=== PATIENT | male | born 1990 | race African-American/Black ===

== ENCOUNTER 2020-06-08 13:44 | Emergency (ER) | payer OTHER, SELFPAY ==
--- NOTE | 2020-06-08 16:04 | RAD REPORT ---
EXAM DESCRIPTION: US - Scrotum Testicles - 06/08/2020 3:53 pm CLINICAL HISTORY: Testicular pain Pain and swelling COMPARISON: No comparisons FINDINGS: The right testicle 4.4 x 2.6 x 2.4 cm. No intratesticular masses or evidence of testicular torsion. The left testicle 3.8 x 2.1 x 2.9 cm. No intratesticular masses or evidence of testicular torsion. Both epididymides are normal in size and appearance. No pathologic fluid collections. IMPRESSION: Unremarkable study.
--- NOTE | 2020-06-08 16:17 | ER ---
Nurse's Notes [facility] Name: Maxim Diaz Age: 29 yrs Sex: Male : 1990 Arrival Date: 06/08/2020 Time: 13:50 Bed 15 [facility] MD: Diagnosis: Epididymitis Presentation: 06/08 13:57 Chief complaint: Patient states: Sudden "popping" pain to base of penis 2 days ago ll1 while having sex. Reports pain and numb areas of the penis since. No swelling reported. Unable to get an erection since. Coronavirus screen: Client denies travel out of the [place] in the last 14 days. At this time, the client does not indicate any symptoms associated with coronavirus-19. Ebola Screen: Patient denies travel to an Ebola-affected area in the 21 days before illness onset. Initial Sepsis Screen: Does the patient meet any 2 criteria? No. Patient's initial sepsis screen is negative. Risk Assessment: Do you want to hurt yourself or someone else? Patient reports no desire to harm self or others. Onset of symptoms was June 06, 2020. 13:57 Method Of Arrival: Ambulatory ll1 13:57 Acuity: HEATHER 3 ll1 14:41 Initial Sepsis Screen: Does the patient have a suspected source of infection? No. jd3 Patient's initial sepsis screen is negative. Historical: - Allergies: 13:59 No Known Allergies; ll1 - PSHx: 13:59 None; ll1 - Immunization history:: Adult Immunizations up to date. - Social history:: Smoking status: Patient denies any tobacco usage or history of. Patient/guardian denies using street drugs. Screenin:41 Abuse screen: Denies threats or abuse. Nutritional screening: No deficits noted. jd3 Tuberculosis screening: No symptoms or risk factors identified. Fall Risk Ambulatory Aid- None/Bed Rest/Nurse Assist (0 pts). Gait- Normal/Bed Rest/Wheelchair (0 pts) Mental Status- Oriented to own ability (0 pts). Total Phelps Fall Scale indicates No Risk (0-24 pts). Assessment: 14:39 General: Appears in no apparent distress. uncomfortable, Behavior is calm, cooperative, jd3 appropriate for age. Pain: Complains of pain in groin Quality of pain is described as shooting, tender. Neuro: Level of Consciousness is awake, alert, obeys commands, Oriented to person, place, time, situation. Cardiovascular: Denies chest pain, Capillary refill < 3 seconds Patient's skin is warm and dry. Respiratory: Airway is patent Respiratory effort is even, unlabored, Respiratory pattern is regular, symmetrical, Denies cough, shortness of breath. GI: No signs and/or symptoms were reported involving the gastrointestinal system. : Genitalia appear normal Reports scrotal pain started 2 days ago. EENT: No signs and/or symptoms were reported regarding the EENT system. Derm: Skin is intact, Skin is dry, Skin is normal, Skin temperature is warm. Musculoskeletal: Circulation, motion, and sensation intact. Range of motion: intact in all extremities. 15:33 Reassessment: Patient appears in no apparent distress at this time. No changes from jd3 previously documented assessment. Patient and/or family updated on plan of care and expected duration. Pain level reassessed. Patient is alert, oriented x 3, equal unlabored respirations, skin warm/dry/pink. ultrasound at bedside. 16:34 Reassessment: Patient appears in no apparent distress at this time. Patient and/or jd3 family updated on plan of care and expected duration. Pain level reassessed. Patient is alert, oriented x 3, equal unlabored respirations, skin warm/dry/pink. awaiting shot time before discharge. 16:48 Reassessment: Patient appears in no apparent distress at this time. Patient and/or jd3 family updated on plan of care and expected duration. Pain level reassessed. Patient is alert, oriented x 3, equal unlabored respirations, skin warm/dry/pink. Vital Signs: 13:57 BP 146 / 95; Pulse 79; Resp 17; Temp 98.7; Pulse Ox 100% ; Pain 8/10; ll1 15:34 BP 149 / 82; Pulse 76; Resp 17 S; Pulse Ox 100% on R/A; jd3 16:34 BP 134 / 89; Pulse 79; Resp 17 S; Pulse Ox 100% on R/A; jd3 ED Course: 13:50 Patient arrived in ED. bp1 13:53 Matt Melendez NP is PHCP. pm1 13:53 Darci Che MD is Attending Physician. pm1 13:59 Triage completed. ll1 13:59 Arm band placed on Patient placed in an exam room, on a stretcher. ll1 14:39 Eduardo Chiu, RN is Primary Nurse. jd3 14:42 Patient has correct armband on for positive identification. Placed in gown. Bed in low jd3 position. Call light in reach. Side rails up X 1. Pulse ox on. NIBP on. 16:35 No provider procedures requiring assistance completed. Patient did not have IV access jd3 during this emergency room visit. Administered Medications: 16:18 CANCELLED (Physician Discretion): Rocephin 1 grams IV at calculated rate once; Given pm1 slow IV push per pharmacy instructions 16:33 Drug: AZITHromycin 1 grams Route: PO; jd3 16:49 Follow up: Response: No adverse reaction jd3 16:33 Drug: TORadol 60 mg Route: IM; Site: right gluteus; jd3 16:49 Follow up: Response: No adverse reaction jd3 16:33 Drug: Rocephin (cefTRIAXone) 250 mg Route: IM; Site: left gluteus; jd3 16:49 Follow up: Response: No adverse reaction jd3 Outcome: 16:17 Discharge ordered by MD. pm1 16:48 Discharged to home ambulatory. jd3 16:48 Condition: stable 16:48 Discharge instructions given to patient, Instructed on discharge instructions, follow up and referral plans. Demonstrated understanding of instructions, follow-up care. 16:49 Patient left the ED. jd3 Signatures: Matt Melendez, JOSH PLATE [employer] MILL HAND pm1 Eduardo Chiu, LARRY RN jd3 Jeremy Alejandro RN RN ll1 Keara Bravo
--- NOTE | 2020-06-08 16:17 | EDPHYS ---
Physician Documentation [facility] Name: Maxim Diaz Age: 29 yrs Sex: Male : 1990 Arrival Date: 06/08/2020 Time: 13:50 Bed 15 Private MD: ED Physician Darci Che HPI: 06/08 14:28 This 29 yrs old Black Male presents to ER via Ambulatory with complaints of Genital pm1 pain. 14:28 The patient presents with scrotal pain, of the left side, in the area of the pm1 epidydimis, without swelling, without erythema. Onset: The symptoms/episode began/occurred 2 day(s) ago. Modifying factors: The symptoms are alleviated by nothing, the symptoms are aggravated by sexual intercourse. Associated signs and symptoms: Pertinent negatives: abdominal pain, diarrhea, dysuria, fever, hematuria, nausea, vomiting. Severity of symptoms: in the emergency department the symptoms are unchanged. The patient has not experienced similar symptoms in the past. The patient has not recently seen a physician. Patient reports popping sound 2 days ago with sex and resulting pain to left epididymal area. Historical: - Allergies: 13:59 No Known Allergies; ll1 - PSHx: 13:59 None; ll1 - Immunization history:: Adult Immunizations up to date. - Social history:: Smoking status: Patient denies any tobacco usage or history of. Patient/guardian denies using street drugs. ROS: 14:28 Constitutional: Negative for fever, chills, and weight loss, Cardiovascular: Negative pm1 for chest pain, palpitations, and edema, Respiratory: Negative for shortness of breath, cough, wheezing, and pleuritic chest pain, Abdomen/GI: Negative for abdominal pain, nausea, vomiting, diarrhea, and constipation, Back: Negative for injury and pain. 14:28 MS/Extremity: Negative for injury and deformity, Skin: Negative for injury, rash, and discoloration. 14:28 Neuro: Negative for headache, weakness, numbness, tingling, and seizure. 14:28 : Positive for groin pain, Negative for burning with urination, difficulty urinating, penile discharge. Exam: 14:28 Constitutional: This is a well developed, well nourished patient who is awake, alert, pm1 and in no acute distress. Skin: Warm, dry with normal turgor. Normal color with no rashes, no lesions, and no evidence of cellulitis. MS/ Extremity: Pulses equal, no cyanosis. Neurovascular intact. Full, normal range of motion. 14:28 Back: No spinal tenderness. No costovertebral tenderness. Full range of motion. 14:28 Cardiovascular: Exam negative for acute changes, Rate: normal, Rhythm: regular, Pulses: no pulse deficits are appreciated. 14:28 Respiratory: Exam negative for acute changes, respiratory distress, shortness of breath. 14:28 Abdomen/GI: Inspection: abdomen appears normal, Palpation: abdomen is soft and non-tender, in all quadrants, mass, is not appreciated, rebound tenderness, is not appreciated. 14:28 : Male external genitalia: Circumcision noted. penile discharge, is absent, swelling: is not appreciated, no tenderness or swelling to the penis. Tenderness present to the left epididymis area, Sexual behavior: the patient is sexually active. 14:28 Neuro: Exam negative for acute changes, Orientation: is normal, Motor: is normal, moves all fours. 14:28 : Mold Yard Worker: Gasper JUAREZ. pm1 Vital Signs: 13:57 BP 146 / 95; Pulse 79; Resp 17; Temp 98.7; Pulse Ox 100% ; Pain 8/10; ll1 15:34 BP 149 / 82; Pulse 76; Resp 17 S; Pulse Ox 100% on R/A; jd3 16:34 BP 134 / 89; Pulse 79; Resp 17 S; Pulse Ox 100% on R/A; jd3 MDM: 14:02 Patient medically screened. pm1 15:29 Data reviewed: vital signs. Data interpreted: Pulse oximetry: on room air is 100 %. pm1 Interpretation: normal. 16:14 Counseling: I had a detailed discussion with the patient and/or guardian regarding: the pm1 historical points, exam findings, and any diagnostic results supporting the discharge/admit diagnosis, radiology results, the need for outpatient follow up, to return to the emergency department if symptoms worsen or persist or if there are any questions or concerns that arise at home. 06/08 14:27 Order name: Urine Microscopic Only pm1 06/08 15:58 Order name: Urine Dipstick--Ancillary (enter results) bd 06/08 14:27 Order name: US Scrotum Testicles pm1 06/08 16:05 Order name: US; Complete Time: 16:13 EDDC 06/08 14:27 Order name: Urine Dipstick-Ancillary (obtain specimen); Complete Time: 15:53 pm1 Administered Medications: 16:18 CANCELLED (Physician Discretion): Rocephin 1 grams IV at calculated rate once; Given pm1 slow IV push per pharmacy instructions 16:33 Drug: AZITHromycin 1 grams Route: PO; jd3 16:49 Follow up: Response: No adverse reaction jd3 16:33 Drug: TORadol 60 mg Route: IM; Site: right gluteus; jd3 16:49 Follow up: Response: No adverse reaction jd3 16:33 Drug: Rocephin (cefTRIAXone) 250 mg Route: IM; Site: left gluteus; jd3 16:49 Follow up: Response: No adverse reaction jd3 Disposition: 19:01 Co-signature as Attending Physician, Darci Che MD Signing chart for administrative ps1 purposes. Did not see or evaluate patient. Not an endorsement of care. . Disposition: 06/08/20 16:17 Discharged to Home. Impression: Epididymitis. - Condition is Stable. - Discharge Instructions: Epididymitis, Testicular Self-Exam. - Medication Reconciliation Form, Thank You Letter, Antibiotic Education, Prescription Opioid Use form. - Follow up: Emergency Department; When: As needed; Reason: Worsening of condition. Follow up: Private Physician; When: 2 - 3 days; Reason: Recheck today's complaints, Continuance of care, Re-evaluation by your physician. - Problem is new. - Symptoms have improved. Signatures: Dispatcher [employer] EDDC Matt Melendez NP DEICER TESTER pm1 Eduardo Chiu RN RN Darci Waters MD MD ps1 Jeremy Alejandro RN RN ll1 Corrections: (The following items were deleted from the chart) 16:18 16:18 Rocephin 1 grams IV at calculated rate once; Given slow IV push per pharmacy pm1 instructions ordered. pm1 16:49 16:17 06/08/2020 16:17 Discharged to Home. Impression: Epididymitis. Condition is jd3 Stable. Forms are Medication Reconciliation Form, Thank You Letter, Antibiotic Education, Prescription Opioid Use. Follow up: Emergency Department; When: As needed; Reason: Worsening of condition. Follow up: Private Physician; When: 2 - 3 days; Reason: Recheck today's complaints, Continuance of care, Re-evaluation by your physician. Problem is new. Symptoms have improved. pm1
[2020-06-08] MEDS ORDERED: AZITHROMYCIN 250 MG TAB ONE (16:33)
[2020-06-08] MEDS ORDERED: CEFTRIAXONE 250 MG/VIAL ONE (16:33)
[2020-06-08] MEDS ORDERED: KETOROLAC 30 MG/ML INJ ONE (16:34)
[2020-06-08 16:54] VITALS: TEMP 98.7; O2SAT 100
[2020-06-08 16:58] VITALS: BP 134/89
[2020-06-08 17:08] LABS: Urine Blood NEGATIVE (NEG); Urine Glucose NEGATIVE (NEG); Urine Protein NEGATIVE (NEG); Urine Specific Gravity 1.025 (1.005-1.030)
[2020-06-08 17:29] LABS: Urine Bacteria <20 /HPF (NONE SEEN); Urine Culture Reflex Order NOT NEEDED; Urine RBC <5 /HPF (NONE SEEN)
== END 2020-06-08 16:49 | disposition home or self-care (01) ==
LOC: ER 13:44
DX: N45.1 Epididymitis (principal)
CPT/HCPCS: 76870; J0696; 81003; 81015; 96372; 99283